=== PATIENT | female | born 1990 | race Caucasian/White ===

== ENCOUNTER 2017-04-22 21:26 | Emergency (ER) | payer OTHER ==
[~2017-04-22] VITALS: Ht 167.6 cm; Wt 86.4 kg
[~2017-04-22 21:26] MED LIST: NORC5TAB PO; PRED10 PO
[2017-04-22 21:28] VITALS: BP 138/87; PULSE 74; RESP 18; TEMP 98.1; O2SAT 98
[2017-04-22] MEDS ORDERED: oxyCODONE/ACETAMINOPHEN 5 MG/325 MG TAB PO ONE (22:00)
--- NOTE | 2017-04-22 22:39 | PD ---
HPI Chief Complaint: Abdominal Pain Time Seen by Provider: 21:49 Travel History International Travel<30 days: No Contact w/Intl Traveler<30days: No Traveled to known affect area: No History of Present Illness HPI Patient is a 27-year-old female who was sent to the emergency room by [facility] emergency room for pelvic ultrasound. Patient presented to the emergency room initially with complaints of right lower abdominal pain which began 2 days ago. Reports that symptoms are similar to when she's had ovarian cysts in the past. Patient did have a pelvic exam at [facility] by Dr. Jasso. Clue cells were negative, Trichomonas negative, yeast negative, hCG Quant was less than 1. CT of the abdomen and pelvis showed a right-sided ovarian cyst with haziness of fat planes within the pelvis in both adnexa. Patient was sent to the emergency room for evaluation of a tubo-ovarian abscess versus torsion versus ovarian cysts. PFSH Past Medical History Psychiatric: Yes (PTSD X ) Reproductive: Yes (PCOS) Social History Alcohol Use: Yes (OCCATIONALLY) Tobacco Use: Yes (OCCATIONALLY) Substance Use: No (DENIES) Allergies-Medications (Allergen,Severity, Reaction): Coded Allergies: No Known Drug Allergies (Verified Allergy, Unknown, 04/22/17) Reported Meds & Prescriptions Reported Meds & Active Scripts Active Reported Prednisone 10 Mg Tab 0 PO DAILY [place] (Hydrocodone-Acetaminophen) 5 Mg-325 Mg Tab 1 Tab PO Q4H PRN Review of Systems General / Constitutional: No: Fever Eyes: No: Visual changes HENT: No: Headaches Cardiovascular: No: Chest Pain or Discomfort Respiratory: No: Shortness of Breath Gastrointestinal: Positive: Abdominal Pain Genitourinary: Positive: Pelvic Pain, No: Dysuria Musculoskeletal: No: Pain Skin: No Rash Neurologic: No: Weakness Psychiatric: No: Depression Endocrine: No: Polydipsia Hematologic/Lymphatic: No: Easy Bruising Physical Exam Narrative GENERAL: mild distress SKIN: Focused skin assessment warm/dry. HEAD: Atraumatic. Normocephalic. EYES: Pupils equal and round. No scleral icterus. No injection or drainage. ENT: No nasal bleeding or discharge. Mucous membranes pink and moist. NECK: Trachea midline. No JVD. CARDIOVASCULAR: Regular rate and rhythm. No murmur appreciated. RESPIRATORY: No accessory muscle use. Clear to auscultation. Breath sounds equal bilaterally. GASTROINTESTINAL: Abdomen soft, mild tenderness to RLQ, nondistended. Hepatic and splenic margins not palpable. Pelvic exam was deferred at this time as she had a pelvic exam today by Dr. Jasso at [facility] ER. MUSCULOSKELETAL: No obvious deformities. No clubbing. No cyanosis. No edema. NEUROLOGICAL: Awake and alert. No obvious cranial nerve deficits. Motor grossly within normal limits. Normal speech. PSYCHIATRIC: Appropriate mood and affect; insight and judgment normal. Data Data Last Documented VS Vital Signs Date Time Temp Pulse Resp B/P (MAP) Pulse Ox O2 Delivery O2 Flow Rate FiO2 04/22/17 21:28 98.1 74 18 138/87 (104) 98 Room Air Orders Orders Oxycodone-Acetamin 5-325 Mg (Percocet (04/22/17 22:00) Us Pelvis Comp W Dop Transvag (04/22/17 21:55) MDM Medical Decision Making Medical Screen Exam Complete: Yes Emergency Medical Condition: Yes Medical Record Reviewed: Yes Interpretation(s) Vital Signs Date Time Temp Pulse Resp B/P (MAP) Pulse Ox O2 Delivery O2 Flow Rate FiO2 04/22/17 21:28 98.1 74 18 138/87 (104) 98 Room Air Differential Diagnosis Ovarian cysts, tubo-ovarian abscess, PID Narrative Course Patient is a 27-year-old female who was sent to the emergency room from [facility] emergency room for pelvic ultrasound to rule out right sided ovarian cyst versus tubo-ovarian abscess. A pelvic ultrasound was ordered. Last Impressions Abdomen/Pelvis/Transvag US 04/22/179 Signed Impressions: Service Date/Time: Saturday, April 22, 2017 22:07 - CONCLUSION: Unremarkable study. Cami Squires MD Pelvic ultrasound shows simple cyst in the right ovary measuring 1.4 and 0.7 cm in size. hcg quant less than 1, ua positive for small leuk esteraste, mod bacteria, clue cells neg, trich neg, yeast neg, g/c pending Reviewed all labs and all studies with patient in detail including all incidental findings. Patient will follow-up with all cultures from today. Patient was given a dose of Rocephin as well as azithromycin at [facility] for treatment of possible cervicitis, she will follow up with all cultures from today. Signs and symptoms of when to return to the ER was reviewed with patient in detail Diagnosis Primary Impression: Ovarian cyst Qualified Codes: N83.201 - Unspecified ovarian cyst, right side Additional Impressions: Abdominal pain Qualified Codes: R10.31 - Right lower quadrant pain UTI (urinary tract infection) Patient Instructions: General Instructions Additional Instructions: Please provide patient with a copy of their lab work and studies at discharge* * Please follow up with your primary care doctor in 2-3 days Return to the ER if symptoms worsen or progress Return to the ER as needed Please follow-up with all cultures from today Please follow-up with your toxicology supervisor as soon as possible Scripts Nitrofurantoin Monohydrate Macrocrystals (Macrobid) 100 Mg Cap 100 MG PO BID for Infection for 7 Days, #14 CAP 0 Refills Prov: Arline Maxwell DO 04/22/17 Disposition: 01 DISCHARGE HOME Condition: Stable Arline Maxwell DO Apr 22, 2017 22:39
--- NOTE | 2017-04-22 22:50 | RADRPT ---
EXAM DATE/TIME: 04/22/2017 22:07 [place] COMPARISON: No previous studies available for comparison. INDICATIONS : Pelvic pain. MEDICAL HISTORY : Polycystic ovarian syndrome. Post traumatic stress disorder. Alcohol use. SURGICAL HISTORY : Left hand surgery. ENCOUNTER: Initial ACUITY: 3 days PAIN SCORE: 9/10 LOCATION: Bilateral pelvis MEASUREMENTS: UTERUS: 8.6 x 6.0 x 4.4 cm ENDOMETRIAL STRIPE: 9 mm RIGHT OVARY: 3.8 x 2.9 x 1.7 cm cm LEFT OVARY: non visualized FINDINGS: There is no free fluid, or adnexal mass. No definite uterine mass is identified for technique. There are simple cysts in the right ovary measuring 1.4 and 0.7 cm in size. The left ovary is not visualiz ed. Nabothian cysts are seen. CONCLUSION: Unremarkable study. Cami Squires MD on April 22, 2017 at 22:47 Board Certified Radiologist. This report was verified electronically.
[2017-04-22] MEDS ORDERED: MACR100C2 PO (23:38)
[2017-04-22] MEDS ORDERED: TRAM50TA PO (23:44)
== END 2017-04-23 00:48 | disposition home or self-care (01) ==
LOC: NEPD 21:26
DX: N83.201 Unspecified ovarian cyst, right side (principal); N39.0 Urinary tract infection, site not specified; Z72.0 Tobacco use
CPT/HCPCS: 74177; 76830; 76856; 80053; 81001; 83690; 84702; 85025; 87086; 87210; 87491; 87591; 93975; 96372; 96374; 99284; 99285; J0696; J1885; Q9967